=== PATIENT | male | born 1955 | race Caucasian/White ===

== ENCOUNTER 2023-09-05 06:38 | Inpatient (IN) | payer MEDICARE, MEDICAID ==
[2023-09-05] VITALS (11 sets, daily range): BP systolic 104–110; BP diastolic 60–62; PULSE 72–98; RESP 13–18; TEMP 98.1–98.4; O2SAT 94–100
[~2023-09-05] VITALS: Ht 172.7 cm; Wt 74.0 kg
[~2023-09-05 06:38] MED LIST: ALBU17AE26 PO; AMOX-580 PO; FLO0.4C PO; GABA600T PO; LEVO50CA4 PO; LITH300C PO; MEMA10TA PO; NICO-631 TD; TRAZ150T78 PO; ZIPR80CA2 PO
[2023-09-05] MEDS ORDERED: albuterol 2.5 MG/3 ML nebule NEB PRN (07:10)
[2023-09-05] MEDS: ipratropium/albuterol 3ml nebule NEB SCH ×2 (07:23→15:53)
[2023-09-05] MEDS ORDERED: albuterol 2.5 MG/3 ML nebule CONTNEB PRN (07:25)
[2023-09-05] MEDS: ipratropium 0.5 MG/2.5ML nebule IH ONE (07:25)
[2023-09-05] MEDS: methylPREDNISolone sod succ 125mg/2ml vial IV ONE (07:53)
[2023-09-05] MEDS: azithromycin/NS 500mg/250ml 250 ML IV ONE (07:54)
[2023-09-05] MEDS: CefTRIAXone 2gm/D5W 50ml BAG 50 ML IV ONE (07:54)
[2023-09-05] MEDS: normal saline 1000ML IV soln IVB ONE (07:54)
[2023-09-05] MEDS: acetaminophen 1,000mg/100ml IV 100 ML IV ONE (08:30)
[2023-09-05 08:31] LABS: BASOPHILS % (AUTO) 0.5 % (0-1); EOSINOPHILS # (AUTO) 0.3 X10'3 (0-0.9); EOSINOPHILS % (AUTO) 3.5 % (0-6); HEMATOCRIT 38.6 % (42.0-52.0); HEMOGLOBIN 13.1 g/dl (14.0-17.9); LYMPHOCYTES # (AUTO) 2.8 X10'3 (1.1-4.8); LYMPHOCYTES % (AUTO) 35.4 % (21-51); MEAN CORPUSCULAR HEMOGLOBIN 32.2 PG (27.0-31.0); MEAN CORPUSCULAR HGB CONC 33.9 g/dL (33.0-36.5); MEAN CORPUSCULAR VOLUME 94.8 FL (78-98); MEAN PLATELET VOLUME 7.4 FL (7.4-10.4); MONOCYTES # (AUTO) 0.6 X10'3 (0-0.9); MONOCYTES % (AUTO) 7.6 % (2-12); NEUTROPHILS # (AUTO) 4.2 X10'3 (1.8-7.7); PLATELET COUNT 250 X10'3 (140-440); RED BLOOD COUNT 4.07 X10'6 (4.70-6.10); RED CELL DISTRIBUTION WIDTH 14.4 % (11.5-14.5)
[2023-09-05 08:46] LABS: ALBUMIN 3.6 G/DL (3.4-5.0); ANION GAP 7 (8-16); BLOOD UREA NITROGEN 16 MG/DL (7-18); BUN/CREATININE RATIO 12.5 (10.0-20.0); CALCIUM 8.6 MG/DL (8.5-10.1); CHLORIDE 106 MMOL/L (99-107); CREATININE 1.28 MG/DL (0.60-1.10); GLUCOSE 132 MG/DL (70-104); POTASSIUM 4.3 MMOL/L (3.5-5.1); PRO BRAIN NATRIURETIC PEPTIDE 38 PG/ML (0-125); SODIUM 143 MMOL/L (135-145); eCRCL 55 ML/MIN; eGFR 56 ML/MIN
[2023-09-05] MEDS ORDERED: magnesium hydroxide 30ml (MOM) UD suspension PO PRN (10:05)
[2023-09-05] MEDS ORDERED: magnesium 4gm in 100ml NS 100 ML IV PRN (10:05)
[2023-09-05] MEDS ORDERED: mag hydrox/Alum hydrox/simeth 30ml oral suspension PO PRN (10:05)
[2023-09-05] MEDS ORDERED: potassium Cl 20 mEq SR tablet PO PRN ×2 (10:05)
[2023-09-05] MEDS ORDERED: HYDROcodone/acetaminophen 10/325mg tab PO PRN (10:05)
[2023-09-05] MEDS ORDERED: acetaminophen 325mg tablet PO PRN (10:05)
[2023-09-05] MEDS ORDERED: potassium Cl 40MEQ/1/2NS 520ml 520 ML IV PRN (10:05)
[2023-09-05] MEDS ORDERED: HYDROcodone/acetaminophen 5mg/325mg tablet PO PRN (10:05)
[2023-09-05] MEDS ORDERED: ondansetron/PF 4mg/2ml inj IV PRN (10:05)
[2023-09-05] MEDS ORDERED: magnesium 2GM in 50ml NS 50 ML IV PRN (10:05)
[2023-09-05] MEDS: normal saline 1000ml 1,000 ML IV SCH (10:52)
[2023-09-05] MEDS: nicotine 14mg patch - 24hr TD SCH (10:52)
[2023-09-05] MEDS: albuterol 2.5 MG/3 ML nebule NEB PRN (11:34)
[2023-09-05] MEDS: methylPREDNISolone sod succ/PF 40mg inj. IV SCH (17:52)
[2023-09-05] MEDS: acetaminophen 325mg tablet PO PRN (18:03)
[2023-09-05] MEDS: K and/or MAG REPLACEMENT MC SCH (19:21)
[2023-09-05] MEDS: enoxaparin 40mg/0.4ml syringe SQ SCH (22:06)
[2023-09-05] MEDS: DOXYCYCLINE 100MG CAPSULE PO SCH (22:07)
[2023-09-05] MEDS: docusate sod 100mg capsule PO SCH (22:07)
[2023-09-06] VITALS (11 sets, daily range): BP systolic 116–142; BP diastolic 76–92; PULSE 61–95; RESP 16–24; TEMP 97.6–98.6; O2SAT 93–98
[2023-09-06 06:56] LABS: BASOPHILS % (AUTO) 0.1 % (0-1); EOSINOPHILS % (AUTO) 0 % (0-6); HEMATOCRIT 33.7 % (42.0-52.0); HEMOGLOBIN 11.3 g/dl (14.0-17.9); LYMPHOCYTES # (AUTO) 1.3 X10'3 (1.1-4.8); LYMPHOCYTES % (AUTO) 16.8 % (21-51); MEAN CORPUSCULAR HEMOGLOBIN 31.7 PG (27.0-31.0); MEAN CORPUSCULAR HGB CONC 33.5 g/dL (33.0-36.5); MEAN CORPUSCULAR VOLUME 94.9 FL (78-98); MEAN PLATELET VOLUME 7.8 FL (7.4-10.4); MONOCYTES # (AUTO) 0.5 X10'3 (0-0.9); MONOCYTES % (AUTO) 6.1 % (2-12); NEUTROPHILS # (AUTO) 5.8 X10'3 (1.8-7.7); PLATELET COUNT 230 X10'3 (140-440); RED BLOOD COUNT 3.55 X10'6 (4.70-6.10); RED CELL DISTRIBUTION WIDTH 14.4 % (11.5-14.5); WHITE BLOOD COUNT 7.5 X10'3 (4.5-11.0)
[2023-09-06 07:00] LABS: ALANINE AMINOTRANSFERASE 10 U/L (12-78); ALBUMIN 3.1 G/DL (3.4-5.0); ALBUMIN/GLOBULIN RATIO 0.9 (1.1-1.5); ALKALINE PHOSPHATASE 74 IU/L (46-116); ANION GAP 8 (8-16); ASPARTATE AMINO TRANSFERASE 10 U/L (10-37); BILIRUBIN,TOTAL 0.2 MG/DL (0.1-1.0); BLOOD UREA NITROGEN 20 MG/DL (7-18); BUN/CREATININE RATIO 16.7 (10.0-20.0); CALCIUM 8.4 MG/DL (8.5-10.1); CHLORIDE 109 MMOL/L (99-107); GLUCOSE 152 MG/DL (70-104); MAGNESIUM 2.1 MG/DL (1.5-2.4); POTASSIUM 4.6 MMOL/L (3.5-5.1); SODIUM 141 MMOL/L (135-145); TOTAL PROTEIN 6.4 G/DL (6.4-8.2); eCRCL 59 ML/MIN; eGFR 61 ML/MIN
[2023-09-06] MEDS: levoTHYROXINE 25mcg tablet PO SCH (10:48)
[2023-09-06] MEDS: gabapentin 300mg capsule PO SCH (10:48)
[2023-09-06] MEDS: memantine 5mg tablet PO SCH (10:48)
[2023-09-06] MEDS: tamsulosin 0.4mg capsule PO SCH (10:49)
[2023-09-06] MEDS: ziprasidone 20mg capsule PO SCH (10:54)
[2023-09-06] MEDS: lithium carbonate 150mg capsule PO SCH (10:55)
[2023-09-06] MEDS: traZODone 150mg tablet PO SCH (21:17)
[2023-09-07] VITALS (11 sets, daily range): BP systolic 103–115; BP diastolic 67–76; PULSE 84–100; RESP 17–20; TEMP 97.5–98.8; O2SAT 91–97
[2023-09-07 08:44] LABS: BASOPHILS % (AUTO) 0.4 % (0-1); EOSINOPHILS % (AUTO) 0.1 % (0-6); HEMATOCRIT 35.1 % (42.0-52.0); HEMOGLOBIN 11.8 g/dl (14.0-17.9); LYMPHOCYTES # (AUTO) 1.7 X10'3 (1.1-4.8); MEAN CORPUSCULAR HEMOGLOBIN 31.9 PG (27.0-31.0); MEAN CORPUSCULAR HGB CONC 33.7 g/dL (33.0-36.5); MEAN CORPUSCULAR VOLUME 94.7 FL (78-98); MEAN PLATELET VOLUME 7.7 FL (7.4-10.4); MONOCYTES # (AUTO) 0.6 X10'3 (0-0.9); MONOCYTES % (AUTO) 6.6 % (2-12); NEUTROPHILS % (AUTO) 74.9 % (42-75); PLATELET COUNT 265 X10'3 (140-440); RED CELL DISTRIBUTION WIDTH 14.6 % (11.5-14.5); WHITE BLOOD COUNT 9.3 X10'3 (4.5-11.0)
[2023-09-07 09:21] LABS: ALANINE AMINOTRANSFERASE 18 U/L (12-78); ALBUMIN 3.3 G/DL (3.4-5.0); ALBUMIN/GLOBULIN RATIO 0.9 (1.1-1.5); ALKALINE PHOSPHATASE 76 IU/L (46-116); ANION GAP 10 (8-16); ASPARTATE AMINO TRANSFERASE 14 U/L (10-37); BILIRUBIN,TOTAL 0.2 MG/DL (0.1-1.0); BLOOD UREA NITROGEN 23 MG/DL (7-18); BUN/CREATININE RATIO 21.9 (10.0-20.0); CALCIUM 8.4 MG/DL (8.5-10.1); CHLORIDE 108 MMOL/L (99-107); CREATININE 1.05 MG/DL (0.60-1.10); GLUCOSE 131 MG/DL (70-104); MAGNESIUM 1.8 MG/DL (1.5-2.4); POTASSIUM 4.6 MMOL/L (3.5-5.1); SODIUM 142 MMOL/L (135-145); TOTAL CARBON DIOXIDE 24.4 MMOL/L (24-32); TOTAL PROTEIN 6.8 G/DL (6.4-8.2); eCRCL 67 ML/MIN; eGFR 71 ML/MIN
[2023-09-07] MEDS ORDERED: NICO-631 TD (12:37)
[2023-09-07] MEDS ORDERED: PRED20TA PO (12:37)
[2023-09-07] MEDS ORDERED: TIOT18CA3 INH (12:37)
[2023-09-07] MEDS ORDERED: DOXY-224 PO (12:37)
[2023-09-07] MEDS ORDERED: ALBU17AE26 PO (12:37)
[2023-09-08] VITALS (7 sets, daily range): BP systolic 106–141; BP diastolic 72–88; PULSE 69–108; RESP 16–18; TEMP 97.5–97.7; O2SAT 86–96
[2023-09-08 07:08] LABS: BASOPHILS % (AUTO) 0.4 % (0-1); EOSINOPHILS % (AUTO) 0 % (0-6); HEMATOCRIT 32.5 % (42.0-52.0); HEMOGLOBIN 11.1 g/dl (14.0-17.9); LYMPHOCYTES # (AUTO) 1.4 X10'3 (1.1-4.8); LYMPHOCYTES % (AUTO) 17.6 % (21-51); MEAN CORPUSCULAR HGB CONC 34.2 g/dL (33.0-36.5); MEAN CORPUSCULAR VOLUME 93.6 FL (78-98); MEAN PLATELET VOLUME 6.9 FL (7.4-10.4); MONOCYTES # (AUTO) 0.5 X10'3 (0-0.9); MONOCYTES % (AUTO) 6.3 % (2-12); NEUTROPHILS # (AUTO) 5.9 X10'3 (1.8-7.7); NEUTROPHILS % (AUTO) 75.7 % (42-75); PLATELET COUNT 257 X10'3 (140-440); RED BLOOD COUNT 3.47 X10'6 (4.70-6.10); RED CELL DISTRIBUTION WIDTH 14.3 % (11.5-14.5); WHITE BLOOD COUNT 7.8 X10'3 (4.5-11.0)
[2023-09-08 07:32] LABS: ALANINE AMINOTRANSFERASE 21 U/L (12-78); ALBUMIN 2.9 G/DL (3.4-5.0); ALBUMIN/GLOBULIN RATIO 0.9 (1.1-1.5); ALKALINE PHOSPHATASE 69 IU/L (46-116); ANION GAP 1 (8-16); ASPARTATE AMINO TRANSFERASE 13 U/L (10-37); BILIRUBIN,TOTAL 0.2 MG/DL (0.1-1.0); BLOOD UREA NITROGEN 26 MG/DL (7-18); BUN/CREATININE RATIO 22.4 (10.0-20.0); CHLORIDE 108 MMOL/L (99-107); CREATININE 1.16 MG/DL (0.60-1.10); GLUCOSE 168 MG/DL (70-104); MAGNESIUM 1.8 MG/DL (1.5-2.4); POTASSIUM 4.6 MMOL/L (3.5-5.1); SODIUM 139 MMOL/L (135-145); THYROID STIMULATING HORMONE 18.04 ulU/ml (0.34-4.50); TOTAL CARBON DIOXIDE 29.6 MMOL/L (24-32); TOTAL PROTEIN 6.1 G/DL (6.4-8.2); eCRCL 61 ML/MIN; eGFR 63 ML/MIN
[2023-09-08] MEDS: levoTHYROXINE 75mcg tablet PO SCH (08:14)
[2023-09-08] MEDS ORDERED: LEVO75TA PO (21:16)
== END 2023-09-08 17:30 | disposition home or self-care (01) | DRG 189 ==
LOC: ER 06:39 → ED HOLD 10:12 → EDBEDREQ 11:31 → ORTHO 4S 12:51
PROVIDERS: ADMIT Family Medicine; ATTEND Family Medicine
DX: J96.00 Acute respiratory failure, unspecified whether with hypoxia or hypercapnia (principal); N17.0 Acute kidney failure with tubular necrosis; J44.1 Chronic obstructive pulmonary disease with (acute) exacerbation; F31.9 Bipolar disorder, unspecified; F20.9 Schizophrenia, unspecified; E03.9 Hypothyroidism, unspecified; F17.210 Nicotine dependence, cigarettes, uncomplicated; N40.0 Benign prostatic hyperplasia without lower urinary tract symptoms; F41.9 Anxiety disorder, unspecified; Z88.2 Allergy status to sulfonamides; Z79.899 Other long term (current) drug therapy
CPT/HCPCS: 36415; 71045; 80048; 80053; 80178; 83605; 83735; 83880; 84443; 84484; 85025; 87040; 87081; 93005; 94640; 94664; 94668; 94760; 99285; A4615; G0378; J0131; J0456; J0696; J1650; J2920; J2930; J7030

== ENCOUNTER 2023-11-21 06:36 | Emergency (ER) | payer MEDICARE, MEDICAID ==
[~2023-11-21] VITALS: Ht 172.7 cm; Wt 68.2 kg
[~2023-11-21 06:36] MED LIST changes: -AMOX-580 PO; +DOXY-224 PO; -LEVO50CA4 PO; +METH4TAB81 PO; +PRED20TA PO; +TIOT18CA3 INH
[2023-11-21] MEDS: normal saline 1000ML IV soln IVB ONE (07:33)
[2023-11-21 07:34] LABS: BASOPHILS # (AUTO) 0.1 X10'3 (0-0.2); BASOPHILS % (AUTO) 0.7 % (0-1); EOSINOPHILS # (AUTO) 0.4 X10'3 (0-0.9); EOSINOPHILS % (AUTO) 5.4 % (0-6); HEMATOCRIT 40.4 % (42.0-52.0); HEMOGLOBIN 13.6 g/dl (14.0-17.9); LYMPHOCYTES # (AUTO) 2.9 X10'3 (1.1-4.8); LYMPHOCYTES % (AUTO) 36.6 % (21-51); MEAN CORPUSCULAR HEMOGLOBIN 31.3 PG (27.0-31.0); MEAN CORPUSCULAR HGB CONC 33.7 g/dL (33.0-36.5); MEAN CORPUSCULAR VOLUME 92.7 FL (78-98); MEAN PLATELET VOLUME 7.2 FL (7.4-10.4); MONOCYTES # (AUTO) 0.7 X10'3 (0-0.9); MONOCYTES % (AUTO) 8.8 % (2-12); NEUTROPHILS # (AUTO) 3.8 X10'3 (1.8-7.7); NEUTROPHILS % (AUTO) 48.5 % (42-75); PLATELET COUNT 288 X10'3 (140-440); RED BLOOD COUNT 4.36 X10'6 (4.70-6.10); RED CELL DISTRIBUTION WIDTH 14.4 % (11.5-14.5); WHITE BLOOD COUNT 7.9 X10'3 (4.5-11.0)
[2023-11-21 07:49] LABS: ALBUMIN 3.8 G/DL (3.4-5.0); ANION GAP 7 (8-16); BLOOD UREA NITROGEN 16 MG/DL (7-18); BUN/CREATININE RATIO 13.7 (10.0-20.0); CALCIUM 9.1 MG/DL (8.5-10.1); CHLORIDE 104 MMOL/L (99-107); CREATININE 1.17 MG/DL (0.60-1.10); GLUCOSE 130 MG/DL (70-104); POTASSIUM 4.4 MMOL/L (3.5-5.1); PRO BRAIN NATRIURETIC PEPTIDE 37 PG/ML (0-125); SODIUM 140 MMOL/L (135-145); TOTAL CARBON DIOXIDE 29.2 MMOL/L (24-32); eCRCL 59 ML/MIN; eGFR 62 ML/MIN
[2023-11-21] MEDS: CefTRIAXone 2gm/D5W 50ml BAG 50 ML IV ONE (07:55)
[2023-11-21] MEDS: magnesium sulf-water 2g/50mL 50 ML IV ONE (07:55)
[2023-11-21] MEDS: methylPREDNISolone sod succ 125mg/2ml vial IV ONE (07:55)
[2023-11-21] MEDS ORDERED: AZIT-164 PO (08:53)
[2023-11-21] MEDS ORDERED: PRED20TA PO (08:53)
[2023-11-21 09:37] VITALS: BP 115/81; PULSE 99; RESP 19; TEMP 98; O2SAT 98
[2023-11-21] MEDS: azithromycin 250mg tablet PO ONE (09:39)
== END 2023-11-21 10:52 | disposition home or self-care (01) ==
LOC: ER 06:38
DX: J44.1 Chronic obstructive pulmonary disease with (acute) exacerbation (principal); Z20.822 Contact with and (suspected) exposure to COVID-19; R11.0 Nausea; R53.1 Weakness; F41.9 Anxiety disorder, unspecified; E08.9 Diabetes mellitus due to underlying condition without complications; F17.210 Nicotine dependence, cigarettes, uncomplicated; Z88.2 Allergy status to sulfonamides; Z79.2 Long term (current) use of antibiotics; Z79.899 Other long term (current) drug therapy; Z79.52 Long term (current) use of systemic steroids
CPT/HCPCS: 36415; 71045; 80048; 83880; 84145; 84484; 85025; 87811; 93005; 96365; 96366; 96368; 96375; 99285; J0696; J2919; J7030

== ENCOUNTER 2024-01-13 05:17 | Emergency (ER) | payer MEDICARE, MEDICAID ==
[~2024-01-13] VITALS: Ht 172.7 cm; Wt 76.8 kg
[2024-01-13 05:22] VITALS: TEMP 97.7
[2024-01-13] MEDS ORDERED: MIRT45TA79 PO (05:59)
[2024-01-13] MEDS ORDERED: IPRA4AER INH (05:59)
[2024-01-13] MEDS ORDERED: LEVO100C4 PO (05:59)
[2024-01-13] MEDS ORDERED: DOCU250C15 PO (05:59)
[2024-01-13] MEDS ORDERED: LISI5TAB22 PO (05:59)
[2024-01-13 06:16] LABS: BASOPHILS # (AUTO) 0.1 X10'3 (0-0.2); BASOPHILS % (AUTO) 0.8 % (0-1); EOSINOPHILS # (AUTO) 0.4 X10'3 (0-0.9); EOSINOPHILS % (AUTO) 4.1 % (0-6); HEMATOCRIT 35.6 % (42.0-52.0); HEMOGLOBIN 11.8 g/dl (14.0-17.9); LYMPHOCYTES # (AUTO) 3.6 X10'3 (1.1-4.8); LYMPHOCYTES % (AUTO) 37.8 % (21-51); MEAN CORPUSCULAR HEMOGLOBIN 30.3 PG (27.0-31.0); MEAN CORPUSCULAR HGB CONC 33.2 g/dL (33.0-36.5); MEAN CORPUSCULAR VOLUME 91.5 FL (78-98); MEAN PLATELET VOLUME 6.9 FL (7.4-10.4); MONOCYTES # (AUTO) 0.8 X10'3 (0-0.9); MONOCYTES % (AUTO) 8.7 % (2-12); NEUTROPHILS # (AUTO) 4.7 X10'3 (1.8-7.7); NEUTROPHILS % (AUTO) 48.6 % (42-75); PLATELET COUNT 387 X10'3 (140-440); RED BLOOD COUNT 3.89 X10'6 (4.70-6.10); RED CELL DISTRIBUTION WIDTH 13.9 % (11.5-14.5); WHITE BLOOD COUNT 9.7 X10'3 (4.5-11.0)
[2024-01-13 06:42] LABS: ALBUMIN 3.1 G/DL (3.4-5.0); ANION GAP 4 (8-16); BLOOD UREA NITROGEN 17 MG/DL (7-18); BUN/CREATININE RATIO 15.2 (10.0-20.0); CALCIUM 8.6 MG/DL (8.5-10.1); CHLORIDE 107 MMOL/L (99-107); CREATININE 1.12 MG/DL (0.60-1.10); GLUCOSE 121 MG/DL (70-104); POTASSIUM 4.1 MMOL/L (3.5-5.1); PRO BRAIN NATRIURETIC PEPTIDE 32 PG/ML (0-125); SODIUM 140 MMOL/L (135-145); TOTAL CARBON DIOXIDE 28.9 MMOL/L (24-32); eCRCL 62 ML/MIN; eGFR 65 ML/MIN
[2024-01-13] MEDS: ipratropium 0.5 MG/2.5ML nebule IH ONE (08:53)
[2024-01-13] MEDS: albuterol 2.5 MG/3 ML nebule NEB ONE (08:53)
[2024-01-13 08:55] VITALS: PULSE 78; RESP 18; O2SAT 98
[2024-01-13 09:00] VITALS: PULSE 74; RESP 18; O2SAT 100
[2024-01-13] MEDS: azithromycin 250mg tablet PO ONE (09:08)
[2024-01-13] MEDS ORDERED: AZIT250T81 PO (09:24)
[2024-01-13] MEDS ORDERED: [UNRECOGNIZED DRUG - OTHER] (09:24)
[2024-01-13 09:47] VITALS: BP 103/67; PULSE 73; RESP 20; O2SAT 99
== END 2024-01-13 10:02 | disposition home or self-care (01) ==
LOC: ER 05:17
DX: J44.1 Chronic obstructive pulmonary disease with (acute) exacerbation (principal); J16.8 Pneumonia due to other specified infectious organisms; E03.9 Hypothyroidism, unspecified; F41.9 Anxiety disorder, unspecified; F31.9 Bipolar disorder, unspecified; Z88.2 Allergy status to sulfonamides; Z79.899 Other long term (current) drug therapy; Z79.1 Long term (current) use of non-steroidal anti-inflammatories (NSAID); Z20.822 Contact with and (suspected) exposure to COVID-19
CPT/HCPCS: 36415; 71045; 80048; 83880; 84484; 85025; 87811; 93005; 94640; 99285; Z7610; 94760

== ENCOUNTER 2024-03-18 13:17 | Emergency (ER) | payer MEDICARE, MEDICAID ==
[~2024-03-18] VITALS: Ht 172.7 cm; Wt 72.7 kg
[~2024-03-18 13:17] MED LIST changes: +DOCU250C15 PO; +IPRA4AER INH; +LEVO100C4 PO; +LISI5TAB22 PO; +MIRT45TA79 PO; +[UNRECOGNIZED DRUG - OTHER]
[2024-03-18 14:24] LABS: ANION GAP 6 (8-16); BLOOD UREA NITROGEN 22 MG/DL (7-18); BUN/CREATININE RATIO 16.1 (10.0-20.0); CALCIUM 9.1 MG/DL (8.5-10.1); CHLORIDE 104 MMOL/L (99-107); CREATININE 1.37 MG/DL (0.60-1.10); GLUCOSE 115 MG/DL (70-104); MAGNESIUM 2.2 MG/DL (1.5-2.4); POTASSIUM 5.3 MMOL/L (3.5-5.1); PRO BRAIN NATRIURETIC PEPTIDE 74 PG/ML (0-125); SODIUM 138 MMOL/L (135-145); TOTAL CARBON DIOXIDE 28.5 MMOL/L (24-32); eCRCL 51 ML/MIN; eGFR 52 ML/MIN
[2024-03-18 14:34] LABS: BASOPHILS # (AUTO) 0.1 X10'3 (0-0.2); BASOPHILS % (AUTO) 0.5 % (0-1); EOSINOPHILS # (AUTO) 0.3 X10'3 (0-0.9); EOSINOPHILS % (AUTO) 2.4 % (0-6); HEMATOCRIT 37.4 % (42.0-52.0); HEMOGLOBIN 12.1 g/dl (14.0-17.9); LYMPHOCYTES # (AUTO) 2.7 X10'3 (1.1-4.8); LYMPHOCYTES % (AUTO) 18.4 % (21-51); MEAN CORPUSCULAR HEMOGLOBIN 29.9 PG (27.0-31.0); MEAN CORPUSCULAR HGB CONC 32.3 g/dL (33.0-36.5); MEAN CORPUSCULAR VOLUME 92.3 FL (78-98); MEAN PLATELET VOLUME 6.7 FL (7.4-10.4); MONOCYTES % (AUTO) 7.2 % (2-12); NEUTROPHILS # (AUTO) 10.3 X10'3 (1.8-7.7); NEUTROPHILS % (AUTO) 71.5 % (42-75); PLATELET COUNT 422 X10'3 (140-440); RED BLOOD COUNT 4.05 X10'6 (4.70-6.10); RED CELL DISTRIBUTION WIDTH 14.8 % (11.5-14.5); WHITE BLOOD COUNT 14.5 X10'3 (4.5-11.0)
[2024-03-18] MEDS: albuterol 2.5 MG/3 ML nebule NEB ONE (20:13)
[2024-03-18 20:16] VITALS: PULSE 92; RESP 18; O2SAT 97
[2024-03-18 20:39] VITALS: PULSE 16; RESP 18; O2SAT 96
[2024-03-18] MEDS: predniSONE 20 mg tablet PO ONE (21:03)
[2024-03-18] MEDS ORDERED: ALBU17AE26 PO (21:22)
[2024-03-18] MEDS ORDERED: METH4TAB81 PO (21:22)
[2024-03-18 21:30] VITALS: BP 184/91; PULSE 104; RESP 22; TEMP 98.7; O2SAT 99
== END 2024-03-18 21:34 | disposition home or self-care (01) ==
LOC: ER 13:18
DX: J44.1 Chronic obstructive pulmonary disease with (acute) exacerbation (principal); E03.9 Hypothyroidism, unspecified; F31.9 Bipolar disorder, unspecified; F41.9 Anxiety disorder, unspecified; Z79.899 Other long term (current) drug therapy; Z88.2 Allergy status to sulfonamides
CPT/HCPCS: 36415; 71045; 80048; 83735; 83880; 84484; 85025; 93005; 94640; 99285; J7512; Z7610; 94760